=== PATIENT | female | born 1975 | race Caucasian/White ===

== ENCOUNTER 2024-09-06 11:03 | Emergency (ER) | payer OTHER, MEDICAID ==
[~2024-09-06] VITALS: Ht 160 cm; Wt 68.0 kg
[2024-09-06 11:12] VITALS: BP 144/97; PULSE 58; RESP 16; TEMP 98.9; O2SAT 96
[2024-09-06] MEDS: KETOROLAC 30 MG/ML VIAL IVP ONE (11:31)
[2024-09-06] MEDS ORDERED: IBUP-2213 PO (11:51)
== END 2024-09-06 12:07 | disposition home or self-care (01) ==
LOC: MED 11:03
DX: R07.9 Chest pain, unspecified (principal); R06.02 Shortness of breath; R42 Dizziness and giddiness; R51.9 Headache, unspecified; I10 Essential (primary) hypertension; F17.210 Nicotine dependence, cigarettes, uncomplicated; Z86.69 Personal history of other diseases of the nervous system and sense organs; Z90.710 Acquired absence of both cervix and uterus; Z88.0 Allergy status to penicillin
CPT/HCPCS: 93005; 96374; 99283; J1885